=== PATIENT | male | born 1950 | race Asian ===

== ENCOUNTER 2017-01-21 11:36 | Emergency (ER) | payer SELFPAY ==
--- NOTE | 2017-01-21 11:44 | EDPHY ---
H & P HPI/ROS: Chief Complaint: Headache, hypertension HPI: 66-year-old male visiting from [facility] for his son's graduation is presenting with hypertension and mild headache this morning. Patient normally takes high blood pressure medication and has been taking these. Does state that he was out celebrating with some last night and did drink several alcoholic drinks which is unusual for him. Has not had any chest pain or shortness of breath. No nausea or vomiting. Headache is mild, 2/10. It was not sudden on onset. Is not the worst headache of his life. ROS: 10 point Review of Systems is negative except as noted in the HPI. PMH: Hypertension, BPH Social History: No smoking, occasional alcohol, no recreational drug use Family History: non-contributory Physical Exam: Gen: Awake, Alert, No Distress HEENT: Nose: no rhinorrhea Eyes: PERRLA, EOMI Mouth: Dry mucous membranes Neck: Supple, no JVD Chest: nontender, lungs clear to auscultation Heart: S1, S2 normal, no murmur Abd: Soft, non-tender, no guarding Back: no CVA tenderness, no midline tenderness Ext: no edema, non-tender Skin: no rash Neuro: CN II-XII intact, Sensation grossly intact, Strength 5/5 in bilateral upper and lower extremities Constitutional: Initial Vital Signs Temperature (C) 36.5 C 01/21/17 11:43 Heart Rate 119 H 01/21/17 11:43 Respiratory Rate 28 H 01/21/17 11:43 Blood Pressure 196/95 H 01/21/17 11:43 O2 Sat (%) 98 01/21/17 11:43 O2 Delivery Mode Room Air Allergies/Adverse Reactions: No Known Allergies Allergy (Unverified 01/21/17 11:50) Home Medications: Medication Instructions Recorded Acid Reflux Medication 01/21/17 Amlodipine Besylate 01/21/17 Valsartan 01/21/17 Medical Decision Making - Diagnostics EKG Interpretation: ECG time 11:56 a.m. sinus tachycardia with a rate of 114, normal axis, normal intervals, no acute ST or T-wave changes. Impression: Sinus tachycardia ED Course/Re-evaluation: Patient is improved after IV hydration. Blood pressures improved heart rate is down. Blood work is entirely normal including a normal troponin, renal function , electrolytes, and CBC. Patient presenting with dehydration and some hypertension which is think is secondary to alcohol ingestion last night. No evidence of acute cardiac process at this time. He is feeling better. He is tolerating p. o.. Will discharge with follow up with primary care as needed. - Data Points Laboratory Results: Laboratory Results 01/21/17 12:05 01/21/17 12:05 01/21/17 01/21/17 12:05 12:05 WBC 5.77 10^3/uL 10^3/uL (3.80-9.50) RBC 5.96 10^6/uL 10^6/uL (4.40-6.38) Hgb 16.2 g/dL g/dL (13.7-17.5) Hct 48.5 % % (40.0-51.0) MCV 81.4 fL L fL (81.5-99.8) MCH 27.2 pg L pg (27.9-34.1) MCHC 33.4 g/dL g/dL (32.4-36.7) RDW 13.0 % % (11.5-15.2) Plt Count 245 10^3/uL 10^3/uL (150-400) MPV 9.6 fL fL (8.7-11.7) Neut % (Auto) 65.1 % % (39.3-74.2) Lymph % (Auto) 27.4 % % (15.0-45.0) [place] % (Auto) 5.0 % % (4.5-13.0) Eos % (Auto) 1.7 % % (0.6-7.6) Baso % (Auto) 0.5 % % (0.3-1.7) Nucleat RBC Rel Count 0.0 % % (0.0-0.2) Absolute Neuts (auto) 3.75 10^3/uL 10^3/uL (1.70-6.50) Absolute Lymphs (auto) 1.58 10^3/uL 10^3/uL (1.00-3.00) Absolute Monos (auto) 0.29 10^3/uL L 10^3/uL (0.30-0.80) Absolute Eos (auto) 0.10 10^3/uL 10^3/uL (0.03-0.40) Absolute Basos (auto) 0.03 10^3/uL 10^3/uL (0.02-0.10) Absolute Nucleated RBC 0.00 10^3/uL 10^3/uL (0-0.01) Immature Gran % 0.3 % % (0.0-1.1) Immature Gran # 0.02 10^3/uL 10^3/uL (0.00-0.10) Sodium 141 mEq/L mEq/L (134-144) Potassium 3.8 mEq/L mEq/L (3.5-5.2) Chloride 103 mEq/L mEq/L (97-110) Carbon Dioxide 25 mEq/l mEq/l (22-31) Anion Gap 13 mEq/L mEq/L (8-16) BUN 12 mg/dL mg/dL (7-23) Creatinine 0.7 mg/dL mg/dL (0.7-1.3) Estimated GFR > 60 Glucose 182 mg/dL H mg/dL (70-100) Calcium 9.1 mg/dL mg/dL (8.5-10.4) Troponin I < 0.012 ng/mL ng/mL (0-0.034) Medications Given: Discontinued Medications Sodium Chloride (Ns) 1,000 mls @ 0 mls/hr IV ONCE ONE PRN Reason: Wide Open Stop: 01/21/17 11:53 Last Admin: 01/21/17 12:05 Dose: 1,000 mls Departure - Departure Disposition: Home, Routine, Self-Care Clinical Impression: Dehydration, Hypertension Condition: Good Instructions: Dehydration (ED), Hypertension (ED) Additional Instructions: Drink plenty of fluids. Follow up with primary care physician or return to the emergency department if symptoms are not improving. Referrals: [facility] [Outside] - As per Instructions
[2017-01-21] MEDS ORDERED: NS 1,000 ML IV ONE (11:52)
--- NOTE | 2017-01-21 11:58 | CPEKG ---
Heart Rate: 114 RR Interval: 526 P-R Interval: 160 QRSD Interval: 86 QT Interval: 340 QTC Interval: 469 P [place]: 47 QRS [place]: 10 T Wave [place]: 0 EKG Severity - OTHERWISE NORMAL ECG - EKG Impression: SINUS TACHYCARDIA Electronically Signed By: Cole Sims 21-Jan-2017 13:58:13
[2017-01-21 12:19] LABS: % IMMATURE GRANULYOCYTES 0.3 % (0.0-1.1); ABSOLUTE IMMATURE GRANULOCYTES 0.02 10^3/uL (0.00-0.10); ADD DIFF? NO; ADD MORPH? NO; ADD SCAN? NO; ATYPICAL LYMPHOCYTE FLAG 0 (0-99); FRAGMENT RBC FLAG 0 (0-99); HEMATOCRIT 48.5 % (40.0-51.0); HEMOGLOBIN 16.2 g/dL (13.7-17.5); LEFT SHIFT FLG 0 (0-99); LIPEMIA HEMOLYSIS FLAG 80 (0-99); MEAN CELL HEMOGLOBIN 27.2 pg (27.9-34.1); MEAN CELL HEMOGLOBIN CONCENTR. 33.4 g/dL (32.4-36.7); MEAN CELL VOLUME 81.4 fL (81.5-99.8); MEAN PLATELET VOLUME 9.6 fL (8.7-11.7); PLATELET CLUMPS FLAG 0 (0-99); PLATELET COUNT 245 10^3/uL (150-400); RED BLOOD CELL COUNT 5.96 10^6/uL (4.40-6.38)
[2017-01-21 12:25] VITALS: RESP 16
[2017-01-21 12:32] LABS: ANION GAP 13 mEq/L (8-16); CALCIUM 9.1 mg/dL (8.5-10.4); CARBON DIOXIDE 25 mEq/l (22-31); CHLORIDE 103 mEq/L (97-110); CREATININE 0.7 mg/dL (0.7-1.3); GLOMERULAR FILTRATION RATE > 60; GLUCOSE 182 mg/dL (70-100); POTASSIUM 3.8 mEq/L (3.5-5.2); SODIUM 141 mEq/L (134-144)
[2017-01-21 12:43] LABS: TROPONIN I < 0.012 ng/mL (0-0.034)
[2017-01-21 13:11] VITALS: BP 160/82; PULSE 90; TEMP 98.6; O2SAT 98
== END 2017-01-21 12:41 | disposition home or self-care (01) ==
LOC: CED 11:36
DX: I10 Essential (primary) hypertension (principal); E86.0 Dehydration
CPT/HCPCS: 80048-PO; 84484-PO; 85025-PO

== ENCOUNTER 2017-01-24 08:17 | Emergency (ER) | payer SELFPAY ==
[2017-01-24 08:35] VITALS: RESP 16; TEMP 97.3
--- NOTE | 2017-01-24 08:38 | CPEKG ---
Heart Rate: 84 RR Interval: 714 P-R Interval: 148 QRSD Interval: 88 QT Interval: 384 QTC Interval: 454 P [place]: 58 QRS [place]: 41 T Wave [place]: -2 EKG Severity - NORMAL ECG - EKG Impression: SINUS RHYTHM Electronically Signed By: Jamia Carpio 25-Jan-2017 16:59:46
[2017-01-24] MEDS ORDERED: METOCLOPRAMIDE 10 MG/2 ML VIAL IVP ONE (08:54)
[2017-01-24] MEDS ORDERED: NS 1,000 ML IV ONE (08:54)
[2017-01-24] MEDS ORDERED: ACETAMINOPHEN 325 MG TAB PO ONE (08:56)
--- NOTE | 2017-01-24 09:24 | EDPHY ---
H & P Stated Complaint: HBP since yest ;Headache; nausea Time Seen by Provider: 01/24/17 08:30 HPI/ROS: This patient is visiting from [facility] for his son's graduation from [facility]. He complains of a throbbing headache today. He reports that it came on gradually yesterday and is bilateral occipital in location. He reports that this is the worst headache he has ever had. He is currently 7/10 intensity. He has not taken any medications for. He notes no clear exacerbating or alleviating factors. No change in the headache with movement. No other associated symptoms except for bilateral hand and feet tingling. He admits some associated anxiety as well. He was here 3 days ago, seen by Dr. miguel with mild dehydration attributable to indulging alcohol celebrating his son's graduation the night before. He improved with hydration here prior to going home. Patient reports compliance with his amlodipine and valsartan medications for his hypertension. ROS: No fevers, significant fatigue or other constitutional symptoms HEENT: No head trauma. No visual changes. Neuro: No focal numbness tingling or weakness. Pulmonary: No cough shortness of breath Cardiovascular: No chest pain or heart palpitations GI: No nausea or vomiting. He has some chronic upper belly discomfort the attributes to his gastritis which is unchanged. Integumentary: No skin rash. 10 point ROS is otherwise negative Source: Patient Exam Limitations: No limitations - Personal History Current Tetanus/Diphtheria Vaccine: Unsure Current Tetanus Diphtheria and Acellular Pertussis (TDAP): Unsure - Medical/Surgical History PMH: Hypertension GERD On the patient's visit here 3 days prior to arrival in [facility] I reviewed his labs-normal basic metabolic panel, normal CBC, normal troponin at that time. Other PMH: HTN, ACID REFLUX, BACK SURG - Family History Significant Family History: No pertinent family hx, Other (Patient denies any family history of migraines or intracranial aneurysms) - Social History Smoking Status: Former smoker Alcohol Use: Occasionally Drug Use: None Additional Social History: Visiting from [facility] - Physical Exam Exam: Physical exam: Vital signs are normal General: Patient is in no acute distress. HEENT: Is no external evidence of trauma on exam. There is no occipital tenderness or other cranial tenderness to palpation. Nose atraumatic. Ears: Clear bilaterally with no hemotympanum. Oropharynx: No dental trauma or malocclusion. No intraoral lacerations. Eyes: Pupils are equal and reactive to light. Extraocular motions are intact. Optic fundi: Clear with no papilledema or hemorrhage. Neck: Supple Lungs: Clear to auscultation bilaterally Cardiac: Regular rate and rhythm no murmur gallop or rub. Chest: Nontender. Abdomen: Soft, minimal epigastric tenderness with no guarding or rebound. Neuro: GCS of 15. Cranial nerves II through XII intact. Cerebellar exam is normal as judged by symmetric rapid hand movements bilaterally. No pronator drift. No sensory or motor deficits are appreciated. Initial differential diagnosis: Vascular headache-intracranial bleed, aneurysm , migraine, altitude headache, tension headache Constitutional: Initial Vital Signs Temperature (C) 36.3 C 01/24/17 08:25 Heart Rate 84 01/24/17 08:25 Respiratory Rate 16 01/24/17 08:25 Blood Pressure 159/89 H 01/24/17 08:25 O2 Sat (%) 96 01/24/17 08:25 O2 Delivery Mode Room Air Allergies/Adverse Reactions: No Known Allergies Allergy (Verified 01/24/17 08:35) Home Medications: Medication Instructions Recorded Acid Reflux Medication 01/21/17 Amlodipine Besylate 01/21/17 Valsartan 01/21/17 Medical Decision Making - Diagnostics Imaging Results: Imaging Impressions Head CT 01/24/17 08:55 Impression: 1. No significant intracranial abnormality seen. Findings discussed with Robert Garvin M.D. at 9:13 hour, 01/24/2017. Imaging: Discussed imaging studies w/ call worker Radiologist ED Course/Re-evaluation: IV normal saline Tylenol p.o. Reglan and Benadryl IV His headache diminish to 3/10 he feels comfortable. His BP normalized to 120s over 70s after treatment. Given this patient has a vascular type headache described as worst headache feels like throbbing in nature proceeded with CT imaging to rule out bleed, aneurysm or other. His CT is normal. Patient is reassured. His symptoms improved with treatment. He may have a mild altitude type headache combined with some dehydration to causes throbbing pain. He also has hypertension but I doubt 160/90 is sufficient to cause hypertensive encephalopathy and clinically he does not have any mental status changes or neuro deficits that suggest encephalopathy. He also has no fever, meningismus or other concerning findings that would suggest [employer] infection. Held off on repeat labs given that he had normal labs 3 days ago with no significant inter current changes except for the onset of the headache. - Data Points Medications Given: Discontinued Medications Acetaminophen (Tylenol) 975 mg PO EDNOW ONE Stop: 01/24/17 08:57 Last Admin: 01/24/17 09:10 Dose: 975 mg Diphenhydramine HCl (Benadryl Injection) 25 mg IVP EDNOW ONE Stop: 01/24/17 08:55 Last Admin: 01/24/17 09:15 Dose: 25 mg Sodium Chloride (Ns) 1,000 mls @ 0 mls/hr IV ONCE ONE PRN Reason: Wide Open Stop: 01/24/17 08:55 Last Admin: 01/24/17 09:10 Dose: 1,000 mls Metoclopramide HCl (Reglan Injection) 10 mg IVP EDNOW ONE Stop: 01/24/17 08:55 Last Admin: 01/24/17 09:15 Dose: 10 mg Departure - Departure Disposition: Home, Routine, Self-Care Clinical Impression: Acute headache Qualifiers: Headache type: unspecified Intractability: not intractable Qualified Code(s): R51 - Headache Condition: Good Instructions: Acute Headache (ED) Additional Instructions: Diagnosis: Acute headache Plan: Drink plenty fluids Continue your current blood pressure medications Tylenol 1000 mg per 6 hours as needed for pain [id number] mg per 6 hours in addition if needed Return for any significant worsening despite the treatment plan Referrals: NONE *PRIMARY CARE P,. [Primary Care Provider] - As per Instructions
[2017-01-24 10:32] VITALS: BP 125/78; PULSE 80; O2SAT 94
== END 2017-01-24 10:30 | disposition home or self-care (01) ==
LOC: CED 08:17
DX: R51 Headache (principal); I10 Essential (primary) hypertension; Z87.891 Personal history of nicotine dependence
CPT/HCPCS: 70450-PO; 96374; J1200; J2765